=== PATIENT | male | born 1975 ===

== ENCOUNTER 2016-10-02 18:39 | Emergency (ER) | payer OTHER ==
--- NOTE | 2016-10-02 18:58 | ED NURSING NOTES ---
Clinical Report - Nurses [facility] [address] [place] [address] 10/02/2016 18:40 Patient: RICKY CORADO TRIAGE Triage time 1830. Acuity: LEVEL 4. Chief Complaint: (pt in for Fit to book to [facility]. 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 pt in for legal blood draw). --18:52 Catarina Young R.N. 18:30 10/02/16. BP: 184/102. HR: 106. RR: 24. O2 saturation: 100%. Temp: unable to obtain. Pain level now: 0/10. Additional comments: refused. --18:52 Catarina Young R.N. Weight: 117.9 kg stated. Height/Length: 74 inches Per Patient. BMI: 33.4. --18:51 Catarina Young R.N. Medications Levothyroxine Sodium Oral 200 mcg, daily. Omeprazole Oral 20 mg, 2x a day. Vitamin B 12 Oral. --18:47 Catarina Young R.N. Pradaxa Oral (Capsule 150 mg) 1 capsule, BID. --18:47 Catarina Young R.N. Allergies NKDA. --18:47 Catarina Young R.N. History Historian: patient. Arrived in police custody and accompanied by police. Primary physician (milad brewer). SURGERY HX: No history of previous surgery. SOCIAL HX: Heavy tobacco smoker (cigarette)- 1 pack per day. Alcohol use; consumes four liquor weekly. No drug use. --18:52 Catarina Young R.N. PROBLEMS: Pulmonary Embolism. Dental Pain. Strep Throat. Dental Caries. --18:45 Catarina Young R.N. ADDITIONAL SURGERIES: no known surgeries. Interventions ID band on patient. To treatment room. --18:52 Catarina Young R.N. PHYSICAL ASSESSMENT 18:30. Ambulatory to room. GENERAL / NEURO / PSYCH: Alert. Oriented X 4. Appears in no acute distress. 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 RESPIRATORY: Respirations not labored. CVS: Capillary refill less than 2 seconds. GI / : Abdomen soft. SKIN: Skin is warm and dry. --18:54 Catarina Young R.N. NURSING PROGRESS NOTES 18:30. Patient identifiers checked. Call light placed in reach. Side rails up. Bed placed in lowest position. Patient ready for evaluation- chart flagged. ( pt sitting on bed in room #15, in for legal blood draw). --18:53 Catarina Young R.N. 18:42. ( lab here to do blood draw). --23:01 Catarina Young R.N. DISPOSITION / DISCHARGE 19:10. Condition at departure: unchanged and stable. No learning barriers present. Discharge instructions provided and reviewed with the patient (police). Reviewed medication(s) (cont. home meds). Written instructions provided in Lao. The patient was discharged to police department facility and accompanied by a police escort. He left the Emergency Department ambulatory and via private vehicle. --23:01 Catarina Young R.N. 19:10 10/02/16. BP: deferred. HR: 98. RR: 22. O2 saturation: 100%. Temp: deferred. Pain level now: 0/10. --23:01 Catarina Young R.N. Locked/Released at 10/02/2016 23:02 by Catarina Young R.N.
--- NOTE | 2016-10-02 18:58 | ED CLINICAL REPORT ---
Clinical Report - Physicians/Mid Levels [facility] [address] [place] [address] 10/02/2016 18:40 Patient: RICKY CORADO Time Seen: 18:40. Arrived- Came in police custody. Historian- patient and police. History limited by poor cooperation. Physical Exam limited by poor cooperation. HISTORY OF PRESENT ILLNESS Chief Complaint: clear to book. This started today. (patient was brought in by the [place] [employer]. They report that he has had multiple DUIs in the past. Apparently multiple phone calls have been made to 911 because he was driving erratically. When they contacted the patient they discovered his history and apparently they're obligated to arrest him. Given their concern for his intoxication asked that he be cleared to book. They also requested a legal blood draw from our lab. The patient denies any complaints). REVIEW OF SYSTEMS No chills, fever, sweats, calf pain or chest pain. No cough, difficulty breathing, pedal edema, palpitations or abdominal pain. No constipation, diarrhea, nausea, vomiting or urinary problems. All systems otherwise negative, except as recorded above. PAST HISTORY Problems: Hypothyroidism. Pulmonary Embolism. Dental Pain. Strep Throat. Dental Caries. Additional Surgeries: no known surgeries. Medications: Pradaxa Oral (Capsule 150 mg) 1 capsule, BID. Levothyroxine Sodium Oral 200 mcg, daily. Omeprazole Oral 20 mg, 2x a day. Vitamin B 12 Oral. Allergies: NKDA. SOCIAL HISTORY Current every day heavy tobacco smoker (cigarette)- 1 pack per day. Alcohol use; consumes four liquor weekly. No drug use. FAMILY HISTORY Unable to obtain family medical history due to patient's unresponsiveness. ADDITIONAL NOTES The nursing notes have been reviewed. PHYSICAL EXAM Vital Signs: 10/02/2016 18:30 BP: 184/102. HR: 106. RR: 24. O2 saturation: 100%. Pain level now: 0/10. Have been reviewed. Heart rate: 88 regular per my evaluation. Respiratory rate 18 regular Per my evaluation. Appearance: Alert. He appears agitated. Eyes: Pupils equal, round and reactive to light. ENT: Pharynx normal. Neck: Normal inspection. Neck supple. CVS: Normal heart rate and rhythm. Heart sounds normal. Respiratory: No respiratory distress. Breath sounds normal. Abdomen: No visible injury. Soft and nontender. Bowel sounds normal. No organomegaly. No mass. Back: Normal inspection. Skin: Skin warm and dry. Normal skin color. No rash. Normal skin turgor. Extremities: Extremities exhibit normal ROM. No calf tenderness. No lower extremity edema. PROGRESS AND PROCEDURES Course of Care: Patient is stable. Patient/family counseled. Old medical records reviewed. Disposition: Discharged. Condition: stable. CLINICAL IMPRESSION Hypothyroidism. Normal exam while in the ED. Previous pulmonary embolism. INSTRUCTIONS (cleared to book for intermediate). Warnings: Further evaluation is necessary. GENERAL WARNINGS: Return or contact your physician immediately if your condition worsens or changes unexpectedly, if not improving as expected, or if other problems arise. Your Current Medications: CONTINUE TAKING THE FOLLOWING MEDICATIONS: Levothyroxine Sodium Oral : 200 mcg daily. Omeprazole Oral : 20 mg 2x a day. Pradaxa Oral : Capsule 150 mg, 1 capsule BID. Vitamin B 12 Oral. Follow-up: Follow up with your doctor in seven days. Call for an appointment. Understanding of the discharge instructions verbalized by patient. (Electronically signed by Salazar Schaeffer MD 10/02/2016 19:16)
--- NOTE | 2016-10-02 18:58 | ED CLINICAL REPORT ---
Clinical Report - Physicians/Mid Levels [facility] [address] [place] [address] 10/02/2016 18:40 Patient: RICKY CORADO Time Seen: 18:40. Arrived- Came in police custody. Historian- patient and police. History limited by poor cooperation. Physical Exam limited by poor cooperation. HISTORY OF PRESENT ILLNESS Chief Complaint: clear to book. This started today. (patient was brought in by the [place] [employer]. They report that he has had multiple DUIs in the past. Apparently multiple phone calls have been made to 911 because he was driving erratically. When they contacted the patient they discovered his history and apparently they're obligated to arrest him. Given their concern for his intoxication asked that he be cleared to book. They also requested a legal blood draw from our lab. The patient denies any complaints). REVIEW OF SYSTEMS No chills, fever, sweats, calf pain or chest pain. No cough, difficulty breathing, pedal edema, palpitations or abdominal pain. No constipation, diarrhea, nausea, vomiting or urinary problems. All systems otherwise negative, except as recorded above. PAST HISTORY Problems: Hypothyroidism. Pulmonary Embolism. Dental Pain. Strep Throat. Dental Caries. Additional Surgeries: no known surgeries. Medications: Pradaxa Oral (Capsule 150 mg) 1 capsule, BID. Levothyroxine Sodium Oral 200 mcg, daily. Omeprazole Oral 20 mg, 2x a day. Vitamin B 12 Oral. Allergies: NKDA. SOCIAL HISTORY Current every day heavy tobacco smoker (cigarette)- 1 pack per day. Alcohol use; consumes four liquor weekly. No drug use. FAMILY HISTORY Unable to obtain family medical history due to patient's unresponsiveness. ADDITIONAL NOTES The nursing notes have been reviewed. PHYSICAL EXAM Vital Signs: 10/02/2016 18:30 BP: 184/102. HR: 106. RR: 24. O2 saturation: 100%. Pain level now: 0/10. Have been reviewed. Heart rate: 88 regular per my evaluation. Respiratory rate 18 regular Per my evaluation. Appearance: Alert. He appears agitated. Eyes: Pupils equal, round and reactive to light. ENT: Pharynx normal. Neck: Normal inspection. Neck supple. CVS: Normal heart rate and rhythm. Heart sounds normal. Respiratory: No respiratory distress. Breath sounds normal. Abdomen: No visible injury. Soft and nontender. Bowel sounds normal. No organomegaly. No mass. Back: Normal inspection. Skin: Skin warm and dry. Normal skin color. No rash. Normal skin turgor. Extremities: Extremities exhibit normal ROM. No calf tenderness. No lower extremity edema. PROGRESS AND PROCEDURES Course of Care: Patient is stable. Patient/family counseled. Old medical records reviewed. Disposition: Discharged. Condition: stable. CLINICAL IMPRESSION Hypothyroidism. Normal exam while in the ED. Previous pulmonary embolism. INSTRUCTIONS (cleared to book for [facility]). Warnings: Further evaluation is necessary. GENERAL WARNINGS: Return or contact your physician immediately if your condition worsens or changes unexpectedly, if not improving as expected, or if other problems arise. Your Current Medications: CONTINUE TAKING THE FOLLOWING MEDICATIONS: Levothyroxine Sodium Oral : 200 mcg daily. Omeprazole Oral : 20 mg 2x a day. Pradaxa Oral : Capsule 150 mg, 1 capsule BID. Vitamin B 12 Oral. Follow-up: Follow up with your doctor in seven days. Call for an appointment. Understanding of the discharge instructions verbalized by patient. (Electronically signed by Salazar Schaeffer MD 10/02/2016 19:16)
--- NOTE | 2016-10-02 18:58 | ED NURSING NOTES ---
Clinical Report - Nurses [facility] [address] [place] [address] 10/02/2016 18:40 Patient: RICKY CORADO TRIAGE Triage time 1830. Acuity: LEVEL 4. Chief Complaint: ([facility]. 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 pt in for legal blood draw). --18:52 Catarina Young R.N. 18:30 10/02/16. BP: 184/102. HR: 106. RR: 24. O2 saturation: 100%. Temp: unable to obtain. Pain level now: 0/10. Additional comments: refused. --18:52 Catarina Young R.N. Weight: 117.9 kg stated. Height/Length: 74 inches Per Patient. BMI: 33.4. --18:51 Catarina Young R.N. Medications Levothyroxine Sodium Oral 200 mcg, daily. Omeprazole Oral 20 mg, 2x a day. Vitamin B 12 Oral. --18:47 Catarina Young R.N. Pradaxa Oral (Capsule 150 mg) 1 capsule, BID. --18:47 Catairna Young R.N. Allergies NKDA. --18:47 Catarina Young R.N. History Historian: patient. Arrived in police custody and accompanied by police. Primary physician (milad brewer). SURGERY HX: No history of previous surgery. SOCIAL HX: Heavy tobacco smoker (cigarette)- 1 pack per day. Alcohol use; consumes four liquor weekly. No drug use. --18:52 Catarina Young R.N. PROBLEMS: Pulmonary Embolism. Dental Pain. Strep Throat. Dental Caries. --18:45 Catarina Young R.N. ADDITIONAL SURGERIES: no known surgeries. Interventions ID band on patient. To treatment room. --18:52 Catarina Young R.N. PHYSICAL ASSESSMENT 18:30. Ambulatory to room. GENERAL / NEURO / PSYCH: Alert. Oriented X 4. Appears in no acute distress. 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 RESPIRATORY: Respirations not labored. CVS: Capillary refill less than 2 seconds. GI / : Abdomen soft. SKIN: Skin is warm and dry. --18:54 Catarina Young R.N. NURSING PROGRESS NOTES 18:30. Patient identifiers checked. Call light placed in reach. Side rails up. Bed placed in lowest position. Patient ready for evaluation- chart flagged. ( pt sitting on bed in room #15, in for legal blood draw). --18:53 Catarina Young R.N. 18:42. ( lab here to do blood draw). --23:01 Catarina Young R.N. DISPOSITION / DISCHARGE 19:10. Condition at departure: unchanged and stable. No learning barriers present. Discharge instructions provided and reviewed with the patient (police). Reviewed medication(s) (cont. home meds). Written instructions provided in Korean. The patient was discharged to police department facility and accompanied by a police escort. He left the Emergency Department ambulatory and via private vehicle. --23:01 Catarina Young R.N. 19:10 10/02/16. BP: deferred. HR: 98. RR: 22. O2 saturation: 100%. Temp: deferred. Pain level now: 0/10. --23:01 Catarina Young R.N. Locked/Released at 10/02/2016 23:02 by Catarina Young R.N.
--- NOTE | 2016-10-02 23:02 | ED MED RECONCILIATION SUMMARY ---
Patient: RICKY CORADO Medication Reconciliation Report [facility] VisitID: [id number] [address] [place] [address] 41y, M Registration Date/Time: 10/02/2016 Weight: 117.9 kg Height/Length: 74 in. BMI: 33.4 ALLERGIES: NKDA The patient's Home Medications are listed below: CONTINUE TAKING THE FOLLOWING MEDICATIONS: Levothyroxine Sodium Oral 200 mcg, daily Omeprazole Oral 20 mg, 2x a day Pradaxa Oral (150 mg) 1 capsule, BID Vitamin B 12 Oral The source(s) of the original Home Medication information: Not obtained. The following Medications were given to the patient in the Emergency Department: None. The following Medications were prescribed to the patient: None.
--- NOTE | 2016-10-02 23:02 | ED MAR SUMMARY ---
..... Medication Administration Record [facility] [address], [place] [id number] Patient: RICKY CORADO Visit ID: [id number] 41y, M Weight: 117.9 kg Height/Length: 74 in BMI: 33.4 ALLERGIES: NKDA
--- NOTE | 2016-10-02 23:02 | ED MAR SUMMARY ---
..... Medication Administration Record [facility] [address], [place] [id number] Patient: RICKY CORADO Visit ID: [id number] 41y, M Weight: 117.9 kg Height/Length: 74 in BMI: 33.4 ALLERGIES: NKDA
--- NOTE | 2016-10-02 23:02 | ED DISCHARGE INSTRUCTIONS ---
Patient: RICKY CORADO General Instructions [facility] VisitID: [id number] [address] [place] [address] 41y, M Registration Date/Time: 10/02/2016 Hypothyroidism. Normal exam while in the ED. Previous pulmonary embolism. INSTRUCTIONS (cleared to book for intermediate). Warnings: Further evaluation is necessary. GENERAL WARNINGS: Return or contact your physician immediately if your condition worsens or changes unexpectedly, if not improving as expected, or if other problems arise. Your Current Medications: CONTINUE TAKING THE FOLLOWING MEDICATIONS: Levothyroxine Sodium Oral : 200 mcg daily. Omeprazole Oral : 20 mg 2x a day. Pradaxa Oral : Capsule 150 mg, 1 capsule BID. Vitamin B 12 Oral. Follow-up: Follow up with your doctor in seven days. Call for an appointment. Understanding of the discharge instructions verbalized by patient. ADDITIONAL INFORMATION Mcc Clearance You have been evaluated today for any illness or injury that may require special attention while you are in intermediate. It appears that your condition is stable at this time. You have been medically cleared for intermediate. Follow any special advice given regarding the care of any illness or injury present. Notify intermediate personnel if there is any worsening of your symptoms or if new symptoms appear. When you are released from intermediate, follow up with your own medical doctor or the clinic that you have been referred to. If you do not know where to go after you are released, contact us for referral information. Hypothyroidism You have been diagnosed with hypothyroidism. This means your thyroid gland is not producing enough thyroid hormone. This hormone is important to body growth and metabolism. If you don't have enough, many body processes slow down, causing mental and physical sluggishness. A variety of other symptoms may occur and vary from mild to severe. The most severe form of this illness is called myxedema. Signs Of Hyperthyroidism (too much thyroid hormone, which can be a side effect of treatment for low thyroid): Restlessness, nervousness Increased appetite with weight loss Excess sweating Palpitations or irregular heartbeat Feeling overheated Signs Of Hypothyroidism (too little thyroid hormone): Fatigue or sluggishness Difficulty concentrating or thinking clearly; forgetfulness Dry skin, hair loss Depression Unexpected weight gain Feeling cold, or cold hands and/or feet Home Care: Take your medicine exactly as directed at the same time every day. Don't take thyroid pills with soy milk since this interferes with absorption. After taking your thyroid medicine: Wait 4 hours before eating or drinking anything that contains soy. Wait 4 hours before taking iron supplements, antacids that contain either calcium or aluminum hydroxide, or calcium supplements (regular amounts of cows milk are probably okay). Do not stop treatment on your own. If you do, your symptoms will return. Eat a high-fiber, low-calorie diet to relieve constipation and maintain a healthy weight. Get regular exercise. Talk to your doctor about an exercise program that is right for you. Follow Up with your doctor or as advised by our staff. Your thyroid level will need to be monitored for the rest of your life. During your routine visits, tell your doctor about any symptoms such as the ones listed below. Get Prompt Medical Attention if any of the following occur: Extreme fatigue Puffy hands, face, or feet Chest pain or trouble breathing Palpitations or irregular heartbeat Confusion or loss of consciousness You have been given the following additional information: Mcc Clearance Hypothyroidism (Electronically signed by Salazar Schaeffer MD 10/02/2016 19:16)
--- NOTE | 2016-10-02 23:02 | ED DISCHARGE INSTRUCTIONS ---
Patient: RICKY OCRADO General Instructions VisitID: [id number] [address] [place] [address] 41y, M Registration Date/Time: 10/02/2016 Hypothyroidism. Normal exam while in the ED. Previous pulmonary embolism. INSTRUCTIONS (cleared to book for assisted). Warnings: Further evaluation is necessary. GENERAL WARNINGS: Return or contact your physician immediately if your condition worsens or changes unexpectedly, if not improving as expected, or if other problems arise. Your Current Medications: CONTINUE TAKING THE FOLLOWING MEDICATIONS: Levothyroxine Sodium Oral : 200 mcg daily. Omeprazole Oral : 20 mg 2x a day. Pradaxa Oral : Capsule 150 mg, 1 capsule BID. Vitamin B 12 Oral. Follow-up: Follow up with your doctor in seven days. Call for an appointment. Understanding of the discharge instructions verbalized by patient. ADDITIONAL INFORMATION Correction Clearance You have been evaluated today for any illness or injury that may require special attention while you are in assisted. It appears that your condition is stable at this time. You have been medically cleared for assisted. Follow any special advice given regarding the care of any illness or injury present. Notify assisted personnel if there is any worsening of your symptoms or if new symptoms appear. When you are released from assisted, follow up with your own medical doctor or the clinic that you have been referred to. If you do not know where to go after you are released, contact us for referral information. Hypothyroidism You have been diagnosed with hypothyroidism. This means your thyroid gland is not producing enough thyroid hormone. This hormone is important to body growth and metabolism. If you don't have enough, many body processes slow down, causing mental and physical sluggishness. A variety of other symptoms may occur and vary from mild to severe. The most severe form of this illness is called myxedema. Signs Of Hyperthyroidism (too much thyroid hormone, which can be a side effect of treatment for low thyroid): Restlessness, nervousness Increased appetite with weight loss Excess sweating Palpitations or irregular heartbeat Feeling overheated Signs Of Hypothyroidism (too little thyroid hormone): Fatigue or sluggishness Difficulty concentrating or thinking clearly; forgetfulness Dry skin, hair loss Depression Unexpected weight gain Feeling cold, or cold hands and/or feet Home Care: Take your medicine exactly as directed at the same time every day. Don't take thyroid pills with soy milk since this interferes with absorption. After taking your thyroid medicine: Wait 4 hours before eating or drinking anything that contains soy. Wait 4 hours before taking iron supplements, antacids that contain either calcium or aluminum hydroxide, or calcium supplements (regular amounts of cows milk are probably okay). Do not stop treatment on your own. If you do, your symptoms will return. Eat a high-fiber, low-calorie diet to relieve constipation and maintain a healthy weight. Get regular exercise. Talk to your doctor about an exercise program that is right for you. Follow Up with your doctor or as advised by our staff. Your thyroid level will need to be monitored for the rest of your life. During your routine visits, tell your doctor about any symptoms such as the ones listed below. Get Prompt Medical Attention if any of the following occur: Extreme fatigue Puffy hands, face, or feet Chest pain or trouble breathing Palpitations or irregular heartbeat Confusion or loss of consciousness You have been given the following additional information: Correction Clearance Hypothyroidism (Electronically signed by Salazar Schaeffer MD 10/02/2016 19:16)
--- NOTE | 2016-10-02 23:02 | ED MED RECONCILIATION SUMMARY ---
Patient: RICKY CORADO Medication Reconciliation Report [facility] VisitID: [id number] [address] [place] [address] 41y, M Registration Date/Time: 10/02/2016 Weight: 117.9 kg Height/Length: 74 in. BMI: 33.4 ALLERGIES: NKDA The patient's Home Medications are listed below: CONTINUE TAKING THE FOLLOWING MEDICATIONS: Levothyroxine Sodium Oral 200 mcg, daily Omeprazole Oral 20 mg, 2x a day Pradaxa Oral (150 mg) 1 capsule, BID Vitamin B 12 Oral The source(s) of the original Home Medication information: Not obtained. The following Medications were given to the patient in the Emergency Department: None. The following Medications were prescribed to the patient: None.
== END 2016-10-02 19:10 ==
LOC: ED SRH 18:39
DX: Z04.8 Encounter for examination and observation for other specified reasons (principal); E03.9 Hypothyroidism, unspecified; F17.210 Nicotine dependence, cigarettes, uncomplicated; Z86.711 Personal history of pulmonary embolism; Z79.899 Other long term (current) drug therapy